=== PATIENT | male | born 1970 | race Caucasian/White ===

== ENCOUNTER 2017-12-18 17:43 | Emergency (ER) | payer SELFPAY ==
[2017-12-18 17:44] VITALS: BP 138/103; PULSE 95; RESP 18; TEMP 36.4; O2SAT 100; BMI 33.5
--- NOTE | 2017-12-18 18:20 | NURSING ---
CALLED [facility] DR SEARS TALKED TO ANDRA
[2017-12-18] MEDS: ALPRAZolam 0.5 MG Tablet PO (18:34)
--- NOTE | 2017-12-18 20:07 | ED.VISSUMM ---
- ER Visit Summary Date of Service: 12/18/17 Chief Complaint: Anxiety History of Present Illness: The patient is a 47 M who is arriving by EMS. He has been under a lot of stress in the past week and a half as there was a situation he was involved in with his anabaptism. He is on mesh and currently lives in [place]. 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 His father is also the preacher of his anabaptism. He states that this stress from the anabaptism situation over the past several days has resulted in decreased sleep. Today he found himself crying and tried to cope quite with reading the Bible and praying. Eventually got to the point where he needed to well puller head. He pulled over and states that he must have passed out because the ambulance was there for him. Denies any chest pain. He states he is never been in counseling. He states he would like to follow-up with a counselor in [place]. He has a history of hypertension. Physical Examination: Afebrile vital signs are stable Gen: Well-nourished well-developed Head: Normocephalic atraumatic Eyes: Perrl EOMI ENT: TMs clear no rhinorrhea moist mucous membranes Neck: Supple no lymphadenopathy no JVD nontender CVS: Regular rate rhythm no murmurs normal S1-S2 Respiratory: No distress clear to auscultation bilaterally chest nontender Abdomen: Soft nontender nondistended normal bowel sounds no masses Back: Nontender Extremity: Nontender no edema Skin: Normal color no rash Neuro: alert orientated ?3 CN II-XII intact normal strength sensation reflexes gait cerebellar Psych: She does crying and tearful. He denies suicidal homicidal ideation Emergency Department Course and Treatment: Patient received a Xanax. He calm down was eating more jovial is been speaking with a friend. Patient will be discharged with a prescription for Xanax instructions to follow-up with his doctor and with counselor back home. He was advised not to drive on the medication. Impression: 1. Panic attack This note was generated with [employer] software. It may contain incorrect words, spelling, and punctuation that were not noted in review of the chart prior to signing ED Disposition - Plan for ED Patient: Disposition: Home or Assisted Living Chief Complaint: Anxiety Instructions: ED Panic Attack Prescriptions: Alprazolam [Xanax] 0.5 mg PO TID PRN #14 tab PRN Reason: Anxiety Referrals: Counseling,Center [GROUP OF PHYSICIANS] - Additional Instructions: Do not drive while taking Xanax.
[2017-12-18 20:19] VITALS: BP 129/84; PULSE 78; RESP 16; O2SAT 98
--- NOTE | 2017-12-18 20:20 | ED.RN ---
[facility]XED [facility] TO [facility] SO THEY COULD SET UP AN APPOINTMENT.
== END 2017-12-18 20:22 | disposition home or self-care (01) ==
PROVIDERS: Emergency Provider Emergency Medicine
DX: F41.0 Panic disorder [episodic paroxysmal anxiety] (principal); I10 Essential (primary) hypertension; Z79.899 Other long term (current) drug therapy
CPT/HCPCS: 99284